=== PATIENT | female | born 1960 | race African-American/Black ===

== ENCOUNTER 2017-01-01 18:06 | Emergency (ER) | payer MEDICAID, OTHER ==
[~2017-01-01] VITALS: Ht 160 cm; Wt 50.0 kg
[~2017-01-01 18:06] MED LIST: AMOX500T2 PO; ASCO500C6 PO; CLAR500T3 PO; CLONIDINE; FERR-63 PO; METFORMIN; OMEP40CA34 PO
[2017-01-01] MEDS ORDERED: SODIUM CHLORIDE 0.9% 1,000 ML IV ONE (18:54)
[2017-01-01] MEDS ORDERED: LEVETIRACETAM 500MG PREMIX 100 ML IV ONE (19:00)
[2017-01-01 19:16] LABS: BASOPHILS % 1.5 % (0.0-2.0); EOSINOPHILS % 3.3 % (0.0-5.0); HEMATOCRIT. 38.4 % (36.0-48.0); HEMOGLOBIN. 13.1 g/dL (12.0-16.0); MEAN CORPUSCULAR HEMOGLOBIN 34.3 pg (28.0-32.0); MEAN CORPUSCULAR VOLUME 100.6 fL (81.0-99.0); MEAN PLATELET VOLUME 6.7 fl (7.4-10.4); MONOCYTES % 7.6 % (2.0-8.0); NEUTROPHILS % 59.6 % (40.0-76.0); PLATELET 272 x1000/uL (130-400); RED BLOOD CELL COUNT 3.82 mill/uL (4.2-5.4); RED CELL DISTRIBUTION WIDTH 14.6 % (11.6-14.6)
[2017-01-01 19:26] LABS: CARBON DIOXIDE 22 mEq/L (21-32); CHLORIDE 113 mEq/L (98-107); ETHANOL BLOOD 45 mg/dL
[2017-01-01 19:30] LABS: PHENOBARBITAL < 2.1 ug/mL (15.0-40.0)
[2017-01-01 19:31] LABS: CREATINE KINASE 325 IU/L (26-192); TROPONIN I < 0.02 ng/mL (0.00-0.04)
[2017-01-01 19:46] LABS: CARBAMAZEPINE < 0.5 ug/mL (4-12)
[2017-01-01 19:47] LABS: VALPROIC ACID < 50.0 ug/mL (50-100)
[2017-01-01 21:22] LABS: CLARITY URINE CLEAR (CLEAR); COLOR URINE YELLOW (YELLOW); GLUCOSE URINE NEGATIVE (NEGATIVE); KETONES URINE NEGATIVE (NEGATIVE); LEUKOCYTE ESTERASE URINE NEGATIVE (NEGATIVE); NITRITE URINE NEGATIVE (NEGATIVE); OCCULT BLOOD URINE TRACE (NEGATIVE); PROTEIN URINE 2+ (NEGATIVE); UROBILINOGEN URINE 0.2 E.U./dL (0.2-1.0)
[2017-01-01 21:33] LABS: *AMPHETAMINES SCREEN URINE NEGATIVE (NEGATIVE); *BARBITURATES SCREEN URINE NEGATIVE (NEGATIVE); *BENZODIAZEPINES SCREEN URINE NEGATIVE (NEGATIVE); *COCAINE SCREEN URINE PRESUMTIVE POSITIVE (NEGATIVE); CANNABINOID URINE SCREEN NEGATIVE (NEGATIVE); METHADONE URINE SCREEN NEGATIVE (NEGATIVE); OPIATES URINE SCREEN NEGATIVE (NEGATIVE); PHENCYCLIDINE URINE SCREEN NEGATIVE (NEGATIVE)
[2017-01-01 22:36] VITALS: BP 132/78
== END 2017-01-01 22:39 | disposition home or self-care (01) ==
LOC: ER 18:43
DX: R56.9 Unspecified convulsions (principal); F14.10 Cocaine abuse, uncomplicated; G93.40 Encephalopathy, unspecified; F10.10 Alcohol abuse, uncomplicated; I10 Essential (primary) hypertension; E11.9 Type 2 diabetes mellitus without complications; Z79.84 Long term (current) use of oral hypoglycemic drugs
CPT/HCPCS: 36415; 71010; 80053; 80156; 80165; 80184; 80185; 80305; 81001; 82550; 84443; 84484; 85025; 93005; 96365; 99285; G0482; J1953; J7030; Z7610

== ENCOUNTER 2022-07-21 07:18 | Emergency (ER) | payer MEDICAID, OTHER ==
[~2022-07-21] VITALS: Ht 165.1 cm; Wt 54.4 kg
[~2022-07-21 07:18] MED LIST changes: +ACET-2708 MT; -AMOX500T2 PO; -CLAR500T3 PO; +OMEP40CA20 MT; -OMEP40CA34 PO; +TUSSL MT
[2022-07-21 07:37] VITALS: BP 136/78
[2022-07-21] MEDS ORDERED: ACETAMINOPHEN 325MG TABLET PO NR (08:00)
[2022-07-21 09:01] LABS: CHLORIDE 110 mEq/L (98-107)
[2022-07-21 09:04] LABS: BASOPHILS % 0.6 % (0.0-2.0); EOSINOPHILS % 1.7 % (0.0-5.0); HEMATOCRIT. 38.5 % (36.0-48.0); HEMOGLOBIN. 12.7 g/dL (12.0-16.0); LYMPHOCYTES % 27.5 % (20.0-50.0); MEAN CORPUSCULAR HEMOGLOBIN 33.1 pg (28.0-32.0); MEAN CORPUSCULAR VOLUME 100.2 fL (81.0-99.0); MEAN PLATELET VOLUME 6.8 fl (7.4-10.4); MONOCYTES % 9.6 % (2.0-8.0); NEUTROPHILS % 60.6 % (40.0-76.0); PLATELET 325 x1000/uL (130-400); RED BLOOD CELL COUNT 3.84 mill/uL (4.2-5.4); RED CELL DISTRIBUTION WIDTH 15.2 % (11.6-14.6)
[2022-07-21] MEDS ORDERED: HYDROCODONE/ACETAMINOPHEN 5/325MG TABLET PO NR (09:15)
[2022-07-21] MEDS ORDERED: T3 PO ×2 (10:44→10:46)
== END 2022-07-21 11:00 | disposition home or self-care (01) ==
LOC: ER 07:41
DX: M06.9 Rheumatoid arthritis, unspecified (principal); I10 Essential (primary) hypertension
CPT/HCPCS: 36415; 73502; 73552; 80053; 85025; 99284; Z7610